=== PATIENT | male | born 1945 | race Caucasian/White ===

== ENCOUNTER → 2016-06-28 | Outpatient (CLI) | payer OTHER ==
[~2016-06-28] MED LIST: ALPHA LIPOIC A300 MG PO; AMLODIPINE BESYL5 MG PO; ASPIRIN81 M1 PO; ATORVASTATIN CA10 MG PO; B-121000 MC1 PO; BENAZEPRIL HCTZ PO; CIPRO PO; COD LIVER OIL1 EAC1 PO; COREG6.25 M1 PO; FISH OIL 1,0001 CAP PO; FLOMAX0.4 M1 DOB; FLOMAX0.4 M1 PO; FUROSEMIDE40 MG PO; GLUCOTROL PO; HUMALOG100 UNIT/1 SUBQ; HYDROCODON-ACE1 EAC1 PO; IRON18 MG PO; ISORDIL10 MG PO; JANUMET 50-1,1 UDTAB PO; LEVO-T25 MCG PO; LISINOPRIL10 MG PO; LO-DOSE ASPIRIN81 M1 PO; LORCET PLUS 7.1 EACH PO; LOVASTATIN20 M2 PO; LOVASTATIN20 MG PO; METFORMIN HCL1000 M1 PO; METFORMIN PO; MULTI VITAMIN1 EACH PO; PROMOD946 ML PO; PROPECIA1 MG PO; SYNTHROID25 MCG PO; TEMAZEPAM30 MG PO; TURMERIC500 M1 PO; VICOPROFEN 200-1 TAB; VICOPROFEN 200-1 TAB PO; [UNRECOGNIZED DRUG - OTHER] PO
--- NOTE | ~2016-06-28 | US37 ---
[facility] A Service of [facility] & [facility] RADIOLOGY TEXT RESULTS PATIENT: ALCIDES FERREIRA LOCATION: SNIV : 45 UNIT #: [id number] AGE: [address]: KELLEY GAMBINO MD (INT MED) SEX: M ORDER DR: [id number] [place] [id number] P MR#: [id number] Acc #: [id number] NAME: ALCIDES FERREIRA : 1945 SEX: M STUDY DATE/TIME: 06/28/2016 10:42 UNIT: SNIV ROOM: STUDY DESCRIPTION: US Carotid W/Doppler Bilateral Attending Physician: Kelley Gambino M.D. Ordering Physician: Kelley Gambino M.D. Primary Care Physician: Kelley Gambino M.D. MEDICAL IMAGING REPORT This report is preliminary unless electronic signature is present. EXAM Bilateral carotid Doppler HISTORY Carotid bruit. FINDINGS The right common carotid, internal carotid, and external carotid arteries are patent. There is diffuse mmiu-uk-bzpyfdnm plaque noted throughout. Velocity of the common carotid artery is 92 cm/sec. Peak systolic velocity of the right proximal, internal carotid artery is 71 cm/sec with an end diastolic velocity of 19 cm/sec for an ICA/CCA ratio of 0.77. External carotid artery had a velocity of 142 cm/sec. The vertebral artery is visualized with antegrade flow. The left common carotid, internal carotid, and external carotid arteries are patent. There is diffuse xbynisbl-wr-vlpvxn plaque noted throughout. Velocity of the common carotid artery is 53 cm/sec. Peak systolic velocity of the left proximal internal carotid artery is 377 cm/sec with an end diastolic velocity of 139 cm/sec for an ICA/CCA ratio of 7.1. External carotid artery had a velocity of 101 cm/sec. The vertebral artery is visualized with antegrade flow. IMPRESSION 1. Less than 50% stenosis of the right internal carotid artery and greater than 70% stenosis of the left internal carotid artery. 2. No significant stenosis of the external carotid arteries. 3. Antegrade flow of the vertebral arteries. STS. [facility] A Service of [facility] & [facility] RADIOLOGY TEXT RESULTS PATIENT: ALCIDES FERREIRA LOCATION: SNIV : 45 UNIT #: [id number] AGE: [address]: KELLEY GAMBINO MD (INT MED) SEX: M ORDER DR: Dictated by... Alan Baptiste M.D. THIS IS AN ELECTRONICALLY VERIFIED REPORT Alan Baptiste M.D. at 06/29/2016 7:10 AM RICHARD/graciela TD: 06/28/2016 14:28 JOB #: [id number] MEDICAL IMAGING REPORT Page 1 of 1
== END | disposition home or self-care (01) ==
LOC: SNIV 10:09
DX: R09.89 Other specified symptoms and signs involving the circulatory and respiratory systems (principal); I65.23 Occlusion and stenosis of bilateral carotid arteries
CPT/HCPCS: 93880

== ENCOUNTER → 2016-07-26 | Outpatient (CLI) | payer OTHER ==
[2016-07-26 16:01] LABS: CREATININE SERUM 1.4 mg/dL (0.6-1.4); GLOM FILT RATE Estimated 50.2 mL/min (>60)
== END | disposition home or self-care (01) ==
LOC: CLAB 15:03
PROVIDERS: Surgery Vascular Surgery
DX: I65.23 Occlusion and stenosis of bilateral carotid arteries (principal); E78.5 Hyperlipidemia, unspecified; I10 Essential (primary) hypertension
CPT/HCPCS: 36415; 82565; 84520

== ENCOUNTER → 2016-07-27 | Outpatient (CLI) | payer OTHER ==
--- NOTE | ~2016-07-27 | CT23 ---
[facility] A Service of [facility] & [facility] RADIOLOGY TEXT RESULTS PATIENT: ALCIDES FERREIRA [facility] UN[facility] #: [id number] AGE: [address]: Alan Baptiste MD SEX: M ORDER DR: [id number] [place] [id number] [place], [place] [address] [id number] O MR#: [id number] Acc #: [id number] NAME: ALCIDES FERREIRA : 1945 SEX: M STUDY DATE/TIME: 07/27/2016 13:55 UNIT: [facility] ROOM: STUDY DESCRIPTION: CT Angio Neck Attending Physician: Alan Baptiste M.D. Referring Physician: Alan Baptiste M.D. Ordering Physician: Alan Baptiste M.D. Primary Care Physician: Gómez Gambino M.D. MEDICAL IMAGING REPORT This report is preliminary unless electronic signature is present EXAM CT scan of the neck with contrast 07/27/2016 Result text under order number ending [id number] CT scan of the head and neck with contrast 07/27/2016. Please see this order for result text. Dictated by... Miguel Ray M.D. THIS IS AN ELECTRONICALLY VERIFIED REPORT Miguel Ray M.D. at 07/29/2016 4:24 PM BERTHA/judi TD: 07/29/2016 16:01 JOB #: [id number] MEDICAL IMAGING REPORT Page 1 of 1 COPY
--- NOTE | ~2016-07-27 | CT17 ---
[facility] A Service of [facility] & [facility] RADIOLOGY TEXT RESULTS PATIENT: ALCIDES FERREIRA LOCATION: [facility] : 45 UNIT #: [id number] AGE: [address]: Alan Baptiste MD SEX: M ORDER DR: [id number] [facility] [address] [place], [place] [address] [id number] O MR#: [id number] [facility] #: [id number] NAME: ALCIDES FERREIRA. : 1945 SEX: M STUDY DATE/TIME: 07/27/2016 13:55 UNIT: [facility] ROOM: STUDY DESCRIPTION: CT Angio Head Attending Physician: Alan Baptiste M.D. Referring Physician: Alan Baptiste M.D. Ordering Physician: Alan Baptiste M.D. Primary Care Physician: Gómez Gambino M.D. MEDICAL IMAGING REPORT This report is preliminary unless electronic signature is present EXAM CT scan of the head and neck with contrast with carotid CT angiography HISTORY Intermittent dizziness over the past 2 years. Plaque seen on carotid Doppler sonography. Evaluate for significant stenosis. TECHNIQUE Axial imaging was obtained from the mid mediastinum to the top of the head with contrast. 100 mL of Isovue was used. CT angiography was performed with thick sliding MIPs, curved planar reformats and 3-D volumetric imaging with surface shaded and volume shaded display. This CT exam was performed with one or more of the following radiation dose reduction techniques: automatic exposure control, adjustment of mA and/or kV according to patient size, and iterative reconstruction. FINDINGS Extravascular structures are unremarkable. The CT angiographic study shows a bovine arch. There is mild plaque at the great vessel origins without significant stenosis. In the posterior circulation both vertebral arteries are widely patent at their origins. The cervical vertebrals are patent and codominant distally. The basilar artery is widely patent. In the carotid circulation there is plaque seen at both carotid bifurcations. On the right side there is no stenosis by NASCET criteria. The distal internal carotid up through the siphon is widely patent with mild nonocclusive calcified plaque seen through the siphon. On the left side there is calcified plaque at the carotid bulb and mixed STS. [facility] A Service of [facility] & [facility] RADIOLOGY TEXT RESULTS PATIENT: ALCIDES FERREIRA LOCATION: [facility] : 45 UNIT #: [id number] AGE: [address]: Alan Baptiste MD SEX: M ORDER DR: calcified and noncalcified plaque in the proximal internal carotid artery. The internal carotid artery is stenotic over a length of nearly 2 cm. Maximum stenosis by NASCET criteria is approximately 70%. The distal internal carotid up through the siphon is widely patent. In the intracranial circulation the left A1 segment is either occluded or hypoplastic and both anterior cerebral arteries fill from the right. There is no evidence of aneurysm, vascular malformation or major branch vessel occlusion. IMPRESSION 1. Severe stenosis proximal left internal carotid artery. There is a segment of soft plaque nearly 2 cm in length from the internal carotid origin distally with maximal stenosis at the distal end of this diseased segment of approximately 70% by NASCET criteria. 2. No significant stenosis at the right bifurcation. 3. No significant posterior fossa abnormality noted. 4. There is either segmental occlusion or congenital hypoplasia of the left A1 segment. Both anterior cerebral arteries fill predominately from the right. Dictated by... Miguel Ray M.D. THIS IS AN ELECTRONICALLY VERIFIED REPORT Miguel Ray M.D. at 07/29/2016 4:24 PM Karen TD: 07/29/2016 16:00 JOB #: [id number] MEDICAL IMAGING REPORT Page 1 of 1 COPY
== END | disposition home or self-care (01) ==
LOC: CCAT 13:07
DX: I65.23 Occlusion and stenosis of bilateral carotid arteries (principal); E78.5 Hyperlipidemia, unspecified; I10 Essential (primary) hypertension; I65.22 Occlusion and stenosis of left carotid artery
CPT/HCPCS: 70496; 70498; Q9967

== ENCOUNTER → 2016-08-22 | Outpatient (CLI) | payer OTHER ==
[2016-08-22 16:16] LABS: URINE APPEARANCE CLEAR; URINE BILIRUBIN NEG (NEG); URINE BLOOD NEG (NEG); URINE COLOR DK YELLOW; URINE GLUCOSE NEG (NEG); URINE KETONE NEG (NEG); URINE LEUKOCYTE ESTERASE NEG (NEG); URINE NITRATE NEG (NEG); URINE PROTEIN NEG (NEG); URINE SPECIFIC GRAVITY 1.014 (1.003-1.035); URINE UROBILINOGEN 0.2 MG/DL (NEG)
[2016-08-22 16:18] LABS: HEMATOCRIT 43.7 % (38.0-50.0); HEMOGLOBIN 14.4 gm/dL (13.0-16.0); MEAN CELL VOLUME 95.8 FL (83-96); MEAN CORPUSCULAR HEMOGLOBIN 31.5 PG (28-34); MEAN CORPUSCULAR HGB CONC 32.9 g/dL (30-36); MEAN PLATELET VOLUME 9.2 FL (6.5-11.5); RED BLOOD COUNT 4.56 X10e (3.90-5.60); RED CELL DISTRIBUTION WIDTH 13.9 % (11.0-15.5)
[2016-08-22 16:23] LABS: URINE SOURCE CLEAN CATCH
[2016-08-22 16:24] LABS: CULTURE INDICATED? NO
[2016-08-22 16:40] LABS: BUN/CREATININE RATIO 22.85; CALCIUM SERUM 9.2 mg/dL (8.4-10.2); CREATININE SERUM 1.4 mg/dL (0.6-1.4); GLOM FILT RATE Estimated 50.2 mL/min (>60); POTASSIUM 4.1 mmol/L (3.5-5.1)
[2016-08-22 17:38] LABS: ALBUMIN SERUM 4.3 g/dL (3.5-5.0); BILIRUBIN,TOTAL 0.8 mg/dL (0.2-2.0); BUN/CREATININE RATIO 24.28; CALCIUM SERUM 9.3 mg/dL (8.4-10.2); CREATININE SERUM 1.4 mg/dL (0.6-1.4); GLOM FILT RATE Estimated 50.2 mL/min (>60); POTASSIUM 4.2 mmol/L (3.5-5.1); PROTEIN TOTAL SERUM 7.5 g/dL (6.0-8.3)
== END | disposition home or self-care (01) ==
LOC: CAMB 14:00
PROVIDERS: Surgery Vascular Surgery
DX: Z01.812 Encounter for preprocedural laboratory examination (principal); I65.23 Occlusion and stenosis of bilateral carotid arteries; E11.9 Type 2 diabetes mellitus without complications; E78.5 Hyperlipidemia, unspecified
CPT/HCPCS: 36415; 80048; 80053; 81003; 85027; 86850; 86900; 86901

== ENCOUNTER 2016-09-01 05:42 | Inpatient (IN) | payer OTHER ==
[~2016-09-01] VITALS: Ht 188 cm; Wt 113.5 kg
--- NOTE | ~2016-09-01 | OR ---
Unit #: [id number] #: [id number] Patient: ALCIDES FERREIRA [id number] [address] [place], [place] [address] [id number] I MR#: [id number] NAME: ALCIDES FERREIRA ROOM: [facility] Date of Procedure: 09/01/2016 Admission Date: 09/01/2016 Surgeon: Alan Baptiste M.D. : 1945 Attending Physician: Alan Baptiste M.D. Primary Care Physician: Gómez Gambino M.D. OPERATIVE REPORT DESIGN DRAFTER Roman Hernandez. PREOPERATIVE DIAGNOSES High-grade asymptomatic left carotid stenosis. POSTOPERATIVE DIAGNOSIS High-grade asymptomatic left carotid stenosis. PROCEDURES PERFORMED Left carotid endarterectomy with bovine pericardial patch angioplasty and intraoperative carotid Doppler. ANESTHESIA General. COMPLICATIONS None. ESTIMATED BLOOD LOSS 100 mL. SPECIMEN None. COMPLICATIONS None. INDICATIONS FOR PROCEDURE The patient is a 71-year-old gentleman with a history of carotid stenosis that was identified on last examination to be greater than 70% by ultrasound and confirmed by CAT scan. After discussion with him and his family, he understood the reasons for carotid endarterectomy. He was told in detail the planned procedure including the associated risks, benefits, complications, and alternatives including but not limited to, possibility of bleeding, infection, stroke, heart attack, and nerve injury. He wished to proceed. DESCRIPTION OF PROCEDURE The patient was taken to the operating room, placed on the operating room table in supine position. Following general anesthesia, the patient's left neck was prepped and draped in normal standard manner. A Unit #: [id number] #: [id number] Patient: ALCIDES FERREIRA longitudinal incision was created anterior to the sternocleidomastoid and taken down through subcutaneous tissues and the platysma with cautery. The anterior border of the sternocleidomastoid was taken down with cautery and the muscle was retracted laterally and posteriorly. The carotid sheath was then identified and entered sharply with Metzenbaum scissors. The common carotid artery was identified at the level of the omohyoid muscle and then dissected free circumferentially and looped with a vessel loop. Continued dissection distally to the carotid bulb was performed and a large crossing facial vein was encountered and doubly ligated and transected. The vagus nerve was identified as well and preserved throughout the case. Dissection along the origin of the external carotid artery towards the superior thyroid artery was performed and the external carotid artery was then dissected free circumferentially and looped with a vessel loop. The internal carotid artery was then dissected free circumferentially from its origin to the hypoglossal nerve, which was identified and preserved throughout the case. The artery was soft distally and dissected free circumferentially and then looped with a heavy silk tie. The patient was then given heparin 100 units/kg and allowed to circulate for 3 minutes. ACT measurements were followed throughout the case and further boluses of heparin were given throughout the case to maintain ACT above 250 seconds. The vessels were then clamped sequentially with the internal carotid, then common carotid, and external carotid artery. The internal carotid clamp was then removed and a stump pressure was performed with a 22-gauge needle with a pressure of 35 mmHg identified. The internal clamp was reapplied and a longitudinal arteriotomy was created and extended proximally and distally with Sanchez scissors. A 10-Uzbek argyle shunt was then inserted into the internal carotid artery following evaluation of back bleeding and then inserted into the common carotid artery with flow then being restored. Hand-held Doppler confirmed flow within the shunt. Endarterectomy was then performed with removal of the plaque throughout the diseased vessel. The endpoint at the common carotid artery was transected with Sanchez scissors and the end point at the internal carotid artery was feathered nicely. An eversion endarterectomy of the external carotid artery was then performed. The remainder of the loose plaque was removed throughout. The endpoint proximally and distally were evaluated and were excellent. A bovine pericardial patch was then brought into the field and anastomosed to the artery with a 6-0 Prolene suture in a running manner. Prior to completion of the anastomosis, the shunt was removed and forward and backbleeding of vessels was performed with no debris noted. The vessel was irrigated with heparinized saline and the anastomosis was then completed. Clamps were removed sequentially on the common carotid, then external carotid, then internal carotid artery. Three original suture line bleeding were identified and controlled with vqglry-iw-qjhqf 6-0 Prolene suture. Intraoperative carotid Doppler was then performed and demonstrated a widely patent common carotid, internal carotid, and external carotid artery throughout. There was no evidence of residual plaque or stenosis throughout. The patient was then given protamine intravenously to reverse the heparin. Direct pressure was held on site for 5 minutes with no active bleeding then noted. Surgicel was placed over the artery. The wound was then closed in 3 layers with a sternocleidomastoid layer 2-0 Vicryl suture, platysma closure with 3-0 Vicryl suture, and 4-0 Monocryl suture for skin. The incision was washed, dressing applied, and the procedure was terminated. The patient tolerated the procedure well and was extubated in the operating room and found to be neurologically intact Unit #: [id number] #: [id number] Patient: ALCIDES FERREIRA following all commands in the operating room. He was then transferred to the recovery room in stable condition. All needle, sponge, and instrument counts were correct at the end of the case. Dictated by... Alicia Andrade/richard TD: 09/02/2016 12:18 JOB #: [id number] OPERATIVE REPORT Page 1 of 1 X Alan Baptiste MD X PROCEDURE OPERATIVE NOTE
--- NOTE | ~2016-09-01 | DS ---
Unit #: [id number] #: [id number] Patient: ALCIDES PABON [id number] [address] [place], [place] [address] [id number] I MR#: [id number] NAME: ALCIDES PABON ROOM: [facility] Age: 71 Sex: M Admission Date: 09/01/2016 : 1945 Discharge Date: 09/02/2016 Attending Physician: Alan Baptiste M.D. Primary Care Physician: Gómez Gambino M.D. DISCHARGE SUMMARY ADMISSION DIAGNOSIS Left carotid atherosclerosis. DISCHARGE DIAGNOSIS Left carotid atherosclerosis. CONSULTANTS Machine Setter Automatic during this admission was Dr. Thomas for ICU emergency nurse management. PROCEDURES On 09/01/2016, the patient underwent left carotid endarterectomy. HISTORY OF PRESENT ILLNESS This is a 71-year-old male who was identified with left carotid stenosis measuring greater than 70%. He presented to [facility] for elective carotid endarterectomy after being explained the risks and benefits. He was agreeable to proceed. HOSPITAL COURSE Following surgery, Mr. Pabon was admitted to ICU-3, bed 14. Overnight, he complained of no issues other than some sore throat. On postoperative day #1, he was tolerating a normal diet. He had no difficulty with swallowing. He was able to get out of bed and ambulate around the nurse's station. He was neurologically intact. In discussion with Mr. Pabon, he reports that he is ready to be discharged home and will assume self-care. PHYSICAL EXAMINATION GENERAL: Awake, alert, fully oriented male. Good mood, appropriate affect. Answers questions appropriately. NECK: Left neck incision is well approximated. No edema noted. LUNGS: Clear to auscultation, nonlabored. CARDIAC: Heart tones, regular rate and rhythm. NEUROLOGIC: Neurological status intact. Strong equal precision structural metal fitter bilaterally. Tongue midline with full motor control. Equal shoulder shrugs bilaterally. Moves all extremities equally. DISCHARGE MEDICATIONS Include Flomax 0.4 mg p.o. every evening; temazepam 30 mg p.o. at bedtime; Coreg 1 tab p.o. b.i.d.; ProMod 30 mL p.o. every morning; amlodipine 5 mg p.o. every morning; furosemide 40 mg p.o. b.i.d.; atorvastatin 10 mg p.o. daily; lisinopril 10 mg p.o. daily; Humalog 25 units subcu t.i.d.; iron Unit #: [id number] #: [id number] Patient: ALCIDES PABON tablet 80 mg p.o. daily; alpha-lipoic acid 300 mg p.o. b.i.d.; daily multivitamin; aspirin 81 mg daily; hydrocodone and acetaminophen 7.5/325, one tab p.o. b.i.d. as needed for pain; turmeric root extract one tab p.o. b.i.d.; Synthroid 1 tab daily; isosorbide dinitrate 10 mg p.o. t.i.d.; vitamin B12 1000 mcg p.o. daily; ubiquinol 100 mg p.o. daily. DISCHARGE INSTRUCTIONS 1. Discharged home. I removed all IVs and heart monitors. 2. Resume regular diet. 3. No driving x2 weeks. Remain on light activity x2 weeks until sees Dr. Baptiste in office. The patient is to follow up with Dr. Baptiste in 2 weeks for postoperative followup. Okay to leave neck incision open to air. May apply a dry bandage if experiences any oozing. Okay to shower and clean the incision with antibacterial soap. Pat dry. No creams or lotion to be applied to the incision. DIAGNOSTIC STUDIES LABORATORY RESULTS: Sodium 134, potassium 4.6, chloride 98, CO2 of 33, BUN 27, creatinine 1.6, glucose 133. Hemoglobin 12.9, hematocrit 40, WBCs 13.2, platelets 261. Follow up with Dr. Baptiste in 2 weeks. Discharged to home. DISCHARGE CONDITION Stable. Dictated by... Santos Calle APRN for Alicia Andrade/richard TD: 09/05/2016 00:13 JOB #: [id number] DISCHARGE SUMMARY Page 1 of 1 X X DISCHARGE SUMMARY
--- NOTE | ~2016-09-01 | US38 ---
[facility] A Service of [facility] RADIOLOGY TEXT RESULTS PATIENT: ALCIDES FERREIRA LOCATION: [place] [address] : 45 UNIT #: [id number] AGE: [address]: Alan Baptiste MD SEX: M ORDER DR: [id number] [place] [id number] [facility] [place] [facility]. [place], [place] [address] [id number] I MR#: [id number] Acc #: [id number] NAME: ALCIDES FERREIRA. : 1945 SEX: M STUDY DATE/TIME: 09/01/2016 9:19 UNIT: [facility] ROOM: [facility] STUDY DESCRIPTION: US Carotid W/Doppler Unilatera Attending Physician: Alan Baptiste M.D. Ordering Physician: Alan Baptiste M.D. Primary Care Physician: Gómez Gambino M.D. MEDICAL IMAGING REPORT This report is preliminary unless electronic signature is present EXAM Left carotid duplex. HISTORY Carotid stenosis, intraoperative evaluation. FINDINGS There is patent flow seen throughout the left common carotid, internal carotid and external carotid arteries. There is no significant atherosclerosis noted in the common carotid artery, internal carotid artery, or external carotid artery. There is no intimal flap, dissection, or thrombus seen. The left common carotid artery peak velocity is 61 cm/sec. The left internal carotid artery peak velocity is 43 cm/sec, and distal aspect 94 cm/sec. The left external carotid artery has a velocity of 131 cm/sec. The left ICA:CCA ratio is 1.5. IMPRESSION Widely patent carotid artery, status post left carotid endarterectomy, with no evidence of intraluminal flap, stenosis, or thrombus. Dictated by... Iván Vaughan M.D. THIS IS AN ELECTRONICALLY VERIFIED REPORT Iván Vaughan M.D. at 09/02/2016 8:42 AM Ronald TD: 09/01/2016 18:43 JOB #: [id number] MEDICAL IMAGING REPORT [facility] A Service of [facility] RADIOLOGY TEXT RESULTS PATIENT: ALCIDES FERREIRA [address] [birth year] UNIT #: [id number] AGE: [address]: Alan Baptiste MD SEX: M ORDER DR: Page 1 of 1 COPY
--- NOTE | ~2016-09-01 | CO ---
Unit #: [id number] #: [id number] Patient: ALCIDES FERREIRA [id number] [place], [place] [address] [id number] I MR#: [id number] NAME: ALCIDES FERREIRA. ROOM: [facility] Age: 71 Sex: M Admission Date: 09/01/2016 : 1945 Attending Physician: Alan Baptiste M.D. Primary Care Physician: Gómez Gambino M.D. Consultation Date: 09/01/2016 CONSULTATION REPORT REASON FOR CONSULT ICU management. CHIEF COMPLAINT Dizziness and lightheadedness. HISTORY OF PRESENT ILLNESS This is a very pleasant 71-year-old male with past medical history significant for nonischemic cardiomyopathy, diabetes mellitus, congestive heart failure, hypertension, and hyperlipidemia who presented to the hospital today for elective left-sided endarterectomy. Patient stated that he has been feeling dizzy for a while, so he reported that to his primary care physician who ordered a carotid Doppler that was consistent with severe carotid stenosis, so patient was scheduled to have this procedure done today. Currently, he is postop day zero. He is doing okay except for the pain and discomfort in his left neck. He denied any nausea, vomiting, or diarrhea. No shortness of breath or chest pain. PAST MEDICAL HISTORY 1. Nonischemic cardiomyopathy. 2. Diabetes mellitus. 3. Congestive heart failure. 4. Hypertension. 5. Hyperlipidemia. PAST SURGICAL HISTORY 1. Colonoscopy. 2. EGD. 3. Splenectomy. FAMILY HISTORY Diabetes and coronary artery disease. SOCIAL HISTORY The patient denied any history of alcohol abuse or drug abuse; however, he smokes cigars occasionally. He had never been a cigarette smoker. ALLERGIES No known drug allergies. REVIEW OF SYSTEMS A 12-point review of systems was obtained and was negative except for what was mentioned in HPI. Unit #: [id number] #: [id number] Patient: ALCIDES FERREIRA PHYSICAL EXAMINATION GENERAL: The patient is in no acute distress. VITAL SIGNS: Blood pressure is 106/62, respiratory rate 20, O2 saturation 98% on room air. HEENT: Atraumatic, normocephalic. PERRLA. EOMI. NECK: Supple. No JVD. No lymphadenopathy. CHEST: Clear to auscultation bilaterally. HEART: S1, S2. No murmur, gallops, or rubs. ABDOMEN: Soft, nontender. Bowel sounds are positive. No hepatosplenomegaly. EXTREMITIES: No edema or cyanosis. SKIN: No rashes. CENTRAL NERVOUS SYSTEM: Awake, alert, oriented x3. No focal motor/sensory deficits. DIAGNOSTIC STUDIES LABORATORY: Creatinine 1.4 on August 22. Hemoglobin 14.4 on August 22. ASSESSMENT 1. Severe left carotid stenosis. 2. Hypertension. 3. Hyperlipidemia. 4. Diabetes. 5. Nonischemic cardiomyopathy. PLAN 1. Status post elective left-sided endarterectomy. 2. Will continue patient on gentle IV hydration but will discontinue tomorrow morning. 3. Pain management. 4. Blood pressure and blood sugar control. 5. Will discontinue his A line in the morning. I would like to thank Dr. Baptiste for allowing me to be part of this patient's care. Dictated by... Ailcia Ness TD: 09/02/2016 09:34 JOB #: [id number] CONSULTATION REPORT Page 1 of 1 X RAFFI MARTÍNEZ MD X CONSULTATION REPORT
[2016-09-02 05:39] LABS: BASOPHIL# 0.1 X10e3 (0-0.3); BASOPHIL% 0.5 % (0-2.5); EOSINOPHIL# 0.4 X10e3 (0-0.7); EOSINOPHIL% 3.3 % (0.0-7.0); HEMOGLOBIN 12.9 gm/dL (13.0-16.0); LYMPHOCYTE# 3.9 X10e3 (1.0-3.5); LYMPHOCYTE% 29.7 % (17.0-45.0); MEAN CELL VOLUME 95.5 FL (83-96); MEAN CORPUSCULAR HEMOGLOBIN 30.9 PG (28-34); MEAN CORPUSCULAR HGB CONC 32.3 g/dL (30-36); MEAN PLATELET VOLUME 9.7 FL (6.5-11.5); MONOCYTE# 1.3 X10e3 (0-1.0); NEUTROPHIL# 7.5 X10e3 (1.5-7.1); NEUTROPHIL% 56.5 % (40-75); PLATELET COUNT 261 X10e3 (140-420); RED BLOOD COUNT 4.19 X10e (3.90-5.60); RED CELL DISTRIBUTION WIDTH 13.9 % (11.0-15.5); WHITE BLOOD COUNT 13.2 X10e3 (4.0-10.5)
[2016-09-02 05:41] LABS: DIFF IND NO
[2016-09-02 06:29] LABS: BUN/CREATININE RATIO 16.87; CALCIUM SERUM 9.1 mg/dL (8.4-10.2); CREATININE SERUM 1.6 mg/dL (0.6-1.4); GLOM FILT RATE Estimated 42.7 mL/min (>60); POTASSIUM 4.6 mmol/L (3.5-5.1)
== END 2016-09-02 11:15 | disposition home or self-care (01) | DRG 38 ==
LOC: CSUR 05:42 → CPACUOF 08:33 → CSUR 09:00 → CPACUOF 09:30 → CICCU3 11:18 → CPACUOF 11:18 → CICCU3 09-02 11:15
PROVIDERS: Surgery Vascular Surgery
PROC: 03UN0JZ Supplement Left External Carotid Artery with Synthetic Substitute, Open Approach (ICD-10-PCS; 2016-09-01)
PROC: B347ZZ3 Ultrasonography of Left Internal Carotid Artery, Intravascular (ICD-10-PCS; 2016-09-01)
PROC: 03CN0ZZ Extirpation of Matter from Left External Carotid Artery, Open Approach (ICD-10-PCS; principal; 2016-09-01 07:30)
DX: I65.22 Occlusion and stenosis of left carotid artery (principal); I42.8 Other cardiomyopathies; I50.9 Heart failure, unspecified; I13.0 Hypertensive heart and chronic kidney disease with heart failure and stage 1 through stage 4 chronic kidney disease, or unspecified chronic kidney disease; F17.290 Nicotine dependence, other tobacco product, uncomplicated; E11.9 Type 2 diabetes mellitus without complications; E78.5 Hyperlipidemia, unspecified; Z83.3 Family history of diabetes mellitus; Z82.49 Family history of ischemic heart disease and other diseases of the circulatory system; N18.9 Chronic kidney disease, unspecified
CPT/HCPCS: 80048; 82947; 85025; 93882; C1781; J0330; J0690; J1644; J1815; J2370; J2710; J2720; J3010

== ENCOUNTER → 2016-10-31 | Outpatient (CLI) | payer OTHER ==
--- NOTE | ~2016-10-31 | US37 ---
[facility] A Service of [facility] & [facility] RADIOLOGY TEXT RESULTS PATIENT: ALCIDES FERREIRA LOCATION: [facility] : 45 UNIT #: [id number] AGE: [address]: Alan Baptiste MD SEX: M ORDER DR: [id number] [facility] [address] [place], [place] [address] [id number] O MR#: [id number] Acc #: [id number] NAME: ALCIDES FERREIRA : 1945 SEX: M STUDY DATE/TIME: 10/31/2016 15:47 UNIT: [facility] ROOM: STUDY DESCRIPTION: US Carotid W/Doppler Bilateral Attending Physician: Alan Baptiste M.D. Referring Physician: Alan Baptiste M.D. Ordering Physician: Alan Baptiste M.D. Primary Care Physician: Gómez Gambino M.D. MEDICAL IMAGING REPORT This report is preliminary unless electronic signature is present EXAM Left carotid duplex HISTORY Left carotid endarterectomy FINDINGS Duplex in the left carotid artery was performed. The left common carotid artery is patent. Internal carotid artery is patent post endarterectomy with no significant plaque. External carotid artery is patent. Velocity in the left common carotid is 59, internal is 43 and external is 99 cm/sec. Antegrade flow is seen in the left vertebral artery. IMPRESSION Normal appearance of the left, internal and external carotid arteries post endarterectomy. Antegrade flow is seen in the left vertebral artery. Dictated by... Ronnie Castro M.D. SA/mor TD: 11/01/2016 12:22 JOB #: [id number] MEDICAL IMAGING REPORT Page 1 of 1
== END | disposition home or self-care (01) ==
LOC: CNIV 10-26 14:00
DX: Z48.812 Encounter for surgical aftercare following surgery on the circulatory system (principal); I65.23 Occlusion and stenosis of bilateral carotid arteries
CPT/HCPCS: 93880